=== PATIENT | female | born 1990 | race Caucasian/White ===

== ENCOUNTER 2021-06-16 08:38 | Outpatient (CLI) | payer BC, OTHER ==
[2021-06-16 19:38] LABS: SARS-CoV-2 PCR by NAA DETECTED (NotDetected)
== END 2021-06-16 08:39 | disposition home or self-care (01) ==
LOC: CSHLAB 08:38
PROVIDERS: ATTEND Obstetrics & Gynecology
DX: U07.1 COVID-19 (principal)
CPT/HCPCS: U0003; U0005

== ENCOUNTER 2021-06-20 05:33 | Inpatient (IN) | payer BC, OTHER ==
[2021-06-20] MEDS ORDERED: Ondansetron PF 4 MG/2 ML Vial IVP PRN ×3 (05:50→11:22)
[2021-06-20] MEDS ORDERED: Promethazine HCl 25 MG/ML VIAL IM PRN ×3 (05:50→11:22)
[2021-06-20] MEDS ORDERED: hydrALAZINE 20 MG/ML VIAL SLOW IVP PRN ×2 (05:50→10:52)
[2021-06-20] MEDS ORDERED: Bicitra 30 ML UDCUP PO PRN (05:50)
[2021-06-20] MEDS ORDERED: Famotidine/PF 20 mg/2ml Vial SLOW IVP PRN (05:50)
[2021-06-20] MEDS ORDERED: ceFAZolin 2 GM/Dextrose 50 ML 2 GM in Premix Bag 1 BAG IVPB SCH (06:00)
[2021-06-20] MEDS ORDERED: Lactated Ringer's 1,000 ML IV SCH (06:00)
[2021-06-20 06:16] VITALS: BMI 30.2
[2021-06-20 06:34] LABS: Hemoglobin 13.1 g/dL (12.0-15.5); Mean Corpuscular HGB CONC 32.3 g/dL (32.0-36.0); Mean Corpuscular Hemoglobin 26.8 pg (27.0-33.0); Mean Platelet Volume 10.3 fl (7.4-10.4); Platelet Count 275 10x3/uL (150-450); RBC Distribution Width 14.6 % (11.5-14.5); Red Blood Cell (RBC) Count 4.88 10x6/uL (3.90-5.03); White Blood Cell (WBC) Count 10.8 10x3/uL (3.5-10.5)
[2021-06-20] MEDS ORDERED: Morphine PF 10 MG/10 ML VIAL ONE (06:49)
[2021-06-20] MEDS ORDERED: Ondansetron PF 4 MG/2 ML Vial ONE (06:49)
[2021-06-20] MEDS ORDERED: Fentanyl 100 MCG/2 ML VIAL ONE (06:49)
[2021-06-20] MEDS ORDERED: Phenylephrine 10 MG/ML VIAL ONE (06:50)
[2021-06-20] MEDS ORDERED: ePHEDrine Sulfate 50 MG/10 ML VIAL ONE (06:51)
[2021-06-20 07:43] LABS: HIV (1/2) Antibody/Antigen Non-Reactive (NonReactive); HIV 1/2 INDEX 0.12 S/CO (<1.00); Hep B Surf Ag Non-Reactive S/CO (NonReactive)
[2021-06-20 07:44] LABS: Syphilis Antibody Nonreactive (Nonreactive); Syphilis Antibody Index 0.06 S/CO (<1.00 Non-Reactive)
[2021-06-20 07:45] LABS: HBSAg Index 0.21 S/CO (0-0.99)
[2021-06-20] MEDS ORDERED: Ketorolac Tromethamine 30 MG/ML VIAL ONE (08:52)
[2021-06-20] MEDS ORDERED: NS w/ Oxytocin 30 units 500 ML ONE (09:46)
[2021-06-20] MEDS ORDERED: diphenhydrAMINE 25 MG CAP PO PRN (10:52)
[2021-06-20] MEDS ORDERED: Boostrix 0.5 ML (Tdap) VIAL IM ONE (10:52)
[2021-06-20] MEDS ORDERED: Lanolin Ointment 7 GM TUBE TOP PRN (10:52)
[2021-06-20] MEDS ORDERED: HYDROcodone/Acetaminophen 5/325 mg Tablet PO PRN ×2 (10:52)
[2021-06-20] MEDS ORDERED: Acetaminophen 325 MG TAB PO PRN (10:52)
[2021-06-20] MEDS ORDERED: NS w/ Oxytocin 30 units 500 ML IV SCH (10:52)
[2021-06-20] MEDS ORDERED: Naloxone HCl 0.4 mg/ml Vial IV PRN (11:22)
[2021-06-20] MEDS ORDERED: Hydrocerin (Eucerin) Cream 120 gm Jar TOP PRN (11:22)
[2021-06-20] MEDS ORDERED: Promethazine HCl 25 MG SUPP PR PRN (11:22)
[2021-06-20] MEDS ORDERED: Naloxone HCl 0.4 mg/ml Vial IVP PRN ×2 (11:22)
[2021-06-20] MEDS ORDERED: Ondansetron HCl/PF 4 MG/2 ML Vial IVP PRN (11:22)
[2021-06-20] MEDS ORDERED: HYDROmorphone 2 MG/ML VIAL SLOW IVP PRN (11:22)
[2021-06-20] MEDS ORDERED: diphenhydrAMINE 50 MG/ML VIAL IVP PRN (11:22)
[2021-06-20] MEDS ORDERED: Meperidine HCl/PF 25 MG/ML VIAL SLOW IVP PRN (11:22)
[2021-06-20] MEDS ORDERED: Fentanyl 100 MCG/2 ML VIAL SLOW IVP PRN (11:22)
[2021-06-20] MEDS ORDERED: Ketorolac Tromethamine 30 MG/ML VIAL IVP SCH (11:30)
[2021-06-20] MEDS ORDERED: Communication Order-Pharmacy FS SCH (11:30)
[2021-06-20] MEDS: Ibuprofen 800 MG TAB PO SCH (15:26)
[2021-06-20] MEDS: Ketorolac Tromethamine 30 MG/ML VIAL IVP PRN (19:34)
[2021-06-20] MEDS: HYDROcodone/Acetaminophen 5/325 mg Tablet PO PRN (22:49)
[2021-06-21] MEDS: HYDROcodone/Acetaminophen 5/325 mg Tablet PO PRN ×5 (02:32→21:54)
[2021-06-21] MEDS: Ferrous Sulfate 325 MG TAB PO SCH ×3 (03:46→21:52)
[2021-06-21] MEDS: Docusate 100 MG CAP PO SCH ×3 (03:46→21:52)
[2021-06-21] MEDS: Ibuprofen 800 MG TAB PO SCH ×4 (03:46→21:52)
[2021-06-21 04:36] LABS: Mean Corpuscular HGB CONC 31.6 g/dL (32.0-36.0); Mean Corpuscular Hemoglobin 26.9 pg (27.0-33.0); Mean Corpuscular Volume 85.3 fl (81.6-98.3); Mean Platelet Volume 10.6 fl (7.4-10.4); Platelet Count 244 10x3/uL (150-450); RBC Distribution Width 14.8 % (11.5-14.5); Red Blood Cell (RBC) Count 3.34 10x6/uL (3.90-5.03); White Blood Cell (WBC) Count 12.3 10x3/uL (3.5-10.5)
[2021-06-21] MEDS: Ketorolac Tromethamine 30 MG/ML VIAL IVP PRN (05:45)
[2021-06-21] MEDS: Prenatal Vitamin 1 TAB PO SCH (08:39)
[2021-06-21] MEDS: Simethicone Chewable 80 MG TAB PO PRN ×2 (08:44→21:52)
[2021-06-22] MEDS: HYDROcodone/Acetaminophen 5/325 mg Tablet PO PRN ×3 (03:41→13:21)
[2021-06-22] MEDS: Ibuprofen 800 MG TAB PO SCH ×2 (05:08→13:21)
[2021-06-22] MEDS: Simethicone Chewable 80 MG TAB PO PRN ×3 (05:09→13:22)
[2021-06-22 08:11] VITALS: BP 102/65; TEMP 98.1
[2021-06-22] MEDS: Ferrous Sulfate 325 MG TAB PO SCH (09:21)
[2021-06-22] MEDS: Prenatal Vitamin 1 TAB PO SCH (09:21)
[2021-06-22] MEDS: Docusate 100 MG CAP PO SCH (09:21)
== END 2021-06-22 17:30 | disposition home or self-care (01) | DRG 786 ==
LOC: CSHLD 05:33 → CSHPP 11:14
PROVIDERS: ADMIT Obstetrics & Gynecology; ATTEND Obstetrics & Gynecology
PROC: 10D00Z1 Extraction of Products of Conception, Low, Open Approach (ICD-10-PCS; principal; 2021-06-20)
DX: O34.211 Maternal care for low transverse scar from previous cesarean delivery (principal); U07.1 COVID-19; O98.52 Other viral diseases complicating childbirth; Z3A.39 39 weeks gestation of pregnancy; Z37.0 Single live birth; Z91.040 Latex allergy status; O32.8XX0 Maternal care for other malpresentation of fetus, not applicable or unspecified
CPT/HCPCS: 36415; 51702; 85027; 86780; 86850; 86900; 86901; 87340; 87389; J1885; J2274; J2370; J2405; J3010